=== PATIENT | male | born 1980 | race Caucasian/White ===

== ENCOUNTER 2017-03-21 17:02 | Emergency (ER) | payer OTHER ==
[~2017-03-21] VITALS: Ht 180.3 cm; Wt 81.6 kg
--- NOTE | ~2017-03-21 | EKG ---
PATIENT: ROSALINE CORONEL UNIT #: [id number] Ventricular Rate: 59 BPM Atrial Rate: 59 BPM P-R Interval: 132 ms QRS Duration: 92 ms Q-T Interval: 442 ms QTC Calculation(Bezet): 437 ms P Shunk: 56 degrees Calculated R Shunk: 52 degrees Calculated T Shunk: 32 degrees Diagnosis Line: Sinus bradycardia Diagnosis Line: Otherwise normal ECG Diagnosis Line: No previous ECGs available Diagnosis Line: Confirmed by LETA HALL MD ([id number]) on 03/21/2017 Diagnosis Line: 11:09:49 PM INTERPRETING MD: RAFAEL LARSON
== END 2017-03-21 19:45 | disposition home or self-care (01) ==
LOC: CED 17:02
DX: I16.0 Hypertensive urgency (principal); F17.200 Nicotine dependence, unspecified, uncomplicated
CPT/HCPCS: 36415; 93005; 99284